=== PATIENT | female | born 1980 | race American Indian/Alaskan Native ===

== ENCOUNTER 2020-08-31 17:41 | Emergency (ER) | payer MEDICAID ==
[2020-08-31] MEDS ORDERED: LIDOCAINE (1%) 10 MG/1 ML VIAL 20 ML MDV INFILTRATI ONE ×2 (18:02→23:45)
--- NOTE | 2020-08-31 18:21 | Event Note ---
ED Screening Note Date of service: 08/31/20 Time: 18:19 ED Screening Note: 39-year-old female patient presents emergency department with complaints of a painful swollen area to her left groin progressively worsening for 1 week. The area has not drained. She is not currently on antibiotics. 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 Tachycardic and hypertensive in triage; patient is pacing, agitated, appears uncomfortable. General: Awake, appropriately interactive. Neck: Supple. Full range of motion intact. Cardiovascular: Normal peripheral perfusion. Pulmonary: No respiratory distress. Patient is speaking normally without use of accessory muscles. 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 Tenderness to palpation along the left groin area with fluctuant pocket noted to the left inguinal fold. Neurological: No facial asymmetry. Speech is clear. Follows commands. Patient is alert and oriented. Musculoskeletal: Moves all four extremities spontaneously with normal range of motion. Psych: Cooperative. Appropriate mood and affect. I have greeted and performed a focused rapid initial assessment of this patient. A comprehensive ED assessment and evaluation of the patient, analysis of all test results, and completion of the medical decision-making process will be conducted by additional ED providers. This initial assessment/diagnostic orders/clinical plan/treatment(s) is/are subject to change based on patients health status, clinical progression and re-assessment. Further treatment and workup at subsequent clinical provider's discretion. Patient/guardian urged not to elope from the ED as their condition may be serious if not clinically assesse d and managed.
[2020-08-31] MEDS ORDERED: ACETAMINOPHEN 500 MG TAB PO ONE ×2 (19:33→23:58)
[2020-08-31] MEDS ORDERED: SULFAMETHOXAZOLE/TRIMETHOPRIM 800/160MG DS TAB PO ONE ×2 (20:24→23:59)
[2020-08-31] MEDS ORDERED: KETOROLAC 30 MG/1 ML INJ IV ONE ×2 (20:24→23:58)
[2020-08-31] MEDS ORDERED: SODIUM CHLORIDE 0.9% 1000 ML 1,000 ML IV ONE ×2 (20:24→23:58)
[2020-08-31 20:49] LABS: Basophils # (Auto) 0.1 K/mm3 (0.0-0.1); Eosinophils # (Auto) 0.2 K/mm3 (0.0-0.4); Eosinophils % (Auto) 1.5 % (0.0-4.3); Hematocrit 36.1 % (30.3-42.9); Hemoglobin 11.7 gm/dl (10.1-14.3); Lymphocytes # (Auto) 3.2 K/mm3 (1.2-5.4); Mean Corpuscular HGB Conc 32 % (30-34); Mean Corpuscular Volume 84 fl (79-97); Monocytes # (Auto) 1.2 K/mm3 (0.0-0.8); Platelet Count 446 K/mm3 (140-440); Red Blood Count 4.31 M/mm3 (3.65-5.03); Red Cell Distribution Width 15.5 % (13.2-15.2)
[2020-08-31 21:05] LABS: Alanine Aminotransferase 15 units/L (7-56); Albumin 4.4 g/dL (3.9-5); BUN/Creatinine Ratio 17; Blood Urea Nitrogen 17 mg/dL (7-17); Calcium 9.1 mg/dL (8.4-10.2); Hemolysis Index 0
--- NOTE | 2020-09-01 01:58 | Emergency Department Report ---
ED General Adult HPI - General Chief complaint: Skin/Abscess/Foreign Body Stated complaint: ABSCESS Source: patient Mode of arrival: Ambulatory Limitations: No Limitations - History of Present Illness Initial comments: Patient is a 39-year-old -[place] female with no past medical history presents to the ED with complaint of acute onset persistent severe painful swollen mild erythematous maculopapular rash on left inguinal area for the last 1 week, worse in the last 2 days. Patient states that the pain is worse with any movements or palpation of the area despite taking [id number]-[id number] pain medications. Patient states that she suspects that the rash is likely due to an ingrown hair following shaving of the area. Patient denies nausea, vomiting, fever, chills, dizziness, syncope, chest pain, shortness of breath, abdominal pain, low back pain, traumatic injury, back pain, traumatic injury, numbness and tingling or weakness of left leg. MD Complaint: Left inguinal swollen painful rash -: Sudden, week(s) (1) Location: lower extremity (Left inguinal area) Radiation: non-radiation Severity scale (0 -10): 9 Quality: aching, sharp Consistency: constant Improves with: none Worsens with: movement Associated Symptoms: denies other symptoms, rash (Swollen, severely painful mild erythematous maculopapular rash on left groin area). denies: confusion, chest pain, cough, diaphoresis, fever/chills, headaches, loss of appetite, malaise, nausea/vomiting, shortness of breath, syncope, weakness Treatments Prior to Arrival: NSAID - Related Data Previous Rx's Medication Instructions Recorded Last Taken Type Acetaminophen/Codeine [Tylenol 1 tab PO Q6H PRN #12 tab 09/01/20 Unknown Rx /Codeine # 3 tab] Clindamycin [Clindamycin CAP] 300 mg PO Q8HR #60 capsule 09/01/20 Unknown Rx Ibuprofen [Motrin] 800 mg PO Q8HR PRN #30 tablet 09/01/20 Unknown Rx Ondansetron [Zofran Odt] 4 mg PO Q6HR PRN #15 tab.rapdis 09/01/20 Unknown Rx Sulfamethoxazole/Trimethoprim 1 each PO Q12H #20 tablet 09/01/20 Unknown Rx [Bactrim DS TAB] Allergies Allergy/AdvReac Type Severity Reaction Status Date / Time No Known Allergies Allergy Verified 08/31/20 23:55 ED Review of Systems ROS: Stated complaint: ABSCESS Other details as noted in HPI Constitutional: denies: chills, fever Eyes: denies: eye pain, eye discharge, vision change ENT: denies: ear pain, throat pain Respiratory: denies: cough, shortness of breath, wheezing Cardiovascular: denies: chest pain, palpitations Endocrine: no symptoms reported Gastrointestinal: denies: abdominal pain, nausea, diarrhea Genitourinary: denies: urgency, dysuria, discharge Musculoskeletal: arthralgia (Left inguinal pain due to erythematous maculopapular rash). denies: back pain, joint swelling Skin: rash (Painful, swollen, mild erythematous maculopapular rash on left inguinal area), change in color. denies: lesions Neurological: headache. denies: weakness, paresthesias Psychiatric: denies: anxiety, depression Hematological/Lymphatic: denies: easy bleeding, easy bruising ED Past Medical Hx - Past Medical History Previous Medical History?: No - Surgical History Past Surgical History?: Yes Additional Surgical History: x 2, surgery under arms for boils - Medications Home Medications: Home Medications Medication Instructions Recorded Confirmed Last Taken Type Acetaminophen/Codeine [Tylenol 1 tab PO Q6H PRN #12 tab 09/01/20 Unknown Rx /Codeine # 3 tab] Clindamycin [Clindamycin CAP] 300 mg PO Q8HR #60 capsule 09/01/20 Unknown Rx Ibuprofen [Motrin] 800 mg PO Q8HR PRN #30 tablet 09/01/20 Unknown Rx Ondansetron [Zofran Odt] 4 mg PO Q6HR PRN #15 tab.rapdis 09/01/20 Unknown Rx Sulfamethoxazole/Trimethoprim 1 each PO Q12H #20 tablet 09/01/20 Unknown Rx [Bactrim DS TAB] ED Physical Exam - General Limitations: No Limitations General appearance: alert, in no apparent distress - Head Head exam: Present: atraumatic, normocephalic, normal inspection - Eye Eye exam: Present: normal appearance, PERRL, EOMI Pupils: Present: normal accommodation - ENT ENT exam: Present: normal exam, normal orophraynx, mucous membranes moist, TM's normal bilaterally, normal external ear exam - Neck Neck exam: Present: normal inspection, full ROM - Respiratory Respiratory exam: Present: normal lung sounds bilaterally. Absent: respiratory distress, wheezes, rales, rhonchi, chest wall tenderness, accessory muscle use, decreased breath sounds, prolonged expiratory - Cardiovascular Cardiovascular Exam: Present: normal rhythm, tachycardia, normal heart sounds. Absent: systolic murmur, diastolic murmur, rubs, gallop - GI/Abdominal GI/Abdominal exam: Present: soft, normal bowel sounds. Absent: tenderness, guarding, rebound, hyperactive bowel sounds, organomegaly - Extremities Exam Extremities exam: Present: normal inspection, full ROM, tenderness (Palpable swollen severely tender left inguinal area due to erythematous maculopapular fluctuant rash), normal capillary refill. Absent: pedal edema, joint swelling, calf tenderness - Back Exam Back exam: Present: normal inspection, full ROM. Absent: tenderness, CVA tenderness (R), CVA tenderness (L), muscle spasm, paraspinal tenderness, vertebral tenderness - Neurological Exam Neurological exam: Present: alert, oriented X3, CN II-XII intact, normal gait, reflexes normal - Psychiatric Psychiatric exam: Present: normal affect, normal mood, anxious - Skin Skin exam: Present: warm, dry, intact, normal color, rash (Swollen, mild erythematous, severely tender maculopapular fluctuant rash on left inguinal area), erythema ED Course Vital Signs 08/31/20 09/01/20 17:57 00:00 Temperature 98.3 F Pulse Rate 104 H Respiratory 16 16 Rate Blood Pressure 190/131 [Right] O2 Sat by Pulse 97 Oximetry - I & D Left Groin Type of Procedure: Simple Site: 5 cm x 4 cm Blade Size: 11 I & D Procedure: betadine prep, sterile drapes applied, sterile dressing applied, gauze wick placed Progress: The area was cleaned with normal saline and sterilized with Betadine. 5 mL of lidocaine 1% solution was infiltrated in the area for local anesthesia. When local anesthesia was fully achieved, the area was incised with scalpel blade #11 and copious purulent discharge drained from the area. The wound was then cleaned thoroughly with normal saline and extensively debrided breaking the loculations. The wound was then packed with iodoform quarter-inch gauzes, for a total of 18 cm. Patient tolerated the procedure well. The wound was then dressed appropriately with 4 x 4 gauzes and Tegaderm. On reevaluation, patient's pain is well controlled medication. Patient discharged home on pain medication and antibiotics and advised to return to the ED in 2 days for wound recheck and packing removal, otherwise follow-up with her primary care physician in 7 to 10 days for reevaluation. ED Medical Decision Making - Lab Data Result diagrams: 08/31/20 20:32 08/31/20 20:32 - Medical Decision Making This is a 39-year-old -[place] female with no past medical history presents to the ED with complaint of acute onset persistent severe painful swollen mild erythematous maculopapular rash on left inguinal area for the last 1 week, worse in the last 2 days. Patient states that the pain is worse with any movements or palpation of the area despite taking [id number]-[id number] pain medications. Patient states that she suspects that the rash is likely due to an ingrown hair following shaving of the area. In the ED, patient is alert and oriented x3 and is not in any distress. Patient however appears to be in significant pain and she is crying during the physical exam. Patient is however tachycardic but afebrile in triage. Lab test results were reviewed and showed acute leukocytosis of 13,800, and the rest of the lab test results are nonactionable. Patient was treated for pain and also given clindamycin 900 mg IV x1 and Bactrim DS p.o. x1 with normal saline 1 L IV bolus x1. Left inguinal fluctuant abscess was incised and drained per protocol and the patient tolerated the procedure well after local anesthetic lidocaine 1% solution was used to infiltrate the area. The wound was then dressed appropriately and the patient was discharged home on pain medications and antibiotics. Patient was advised return to the ED in 2 days for wound recheck and packing removal, and was advised to follow-up with her primary care physician in 7 to 10 days for reevaluation or return to the ED immediately if symptoms get worse. - Differential Diagnosis Cellulitis; abscess; folliculitis; insect bite Critical care attestation.: If time is entered above; I have spent that time in minutes in the direct care of this critically ill patient, excluding procedure time. ED Disposition Clinical Impression: Cellulitis of left groin, Acute folliculitis, Cutaneous abscess of groin Disposition: DC-01 TO HOME OR SELFCARE Is pt being admited?: No Does the pt Need Aspirin: No Condition: Stable Instructions: Skin Abscess, [id number], Cellulitis, Adult, [id number], Folliculitis Additional Instructions: All lab test results were reviewed and are all nonactionable. Therefore take medications with food, drink plenty of fluids and follow-up with your primary care physician in 5 to 7 days for reevaluation. Return to the ED immediately if symptoms get worse. Otherwise return to the ED in 2 days for wound recheck and packing removal. Prescriptions: Sulfamethoxazole/Trimethoprim [Bactrim DS TAB] 1 each PO Q12H #20 tablet Clindamycin [Clindamycin CAP] 300 mg PO Q8HR #60 capsule Ibuprofen [Motrin] 800 mg PO Q8HR PRN #30 tablet PRN Reason: Pain , Severe (7-10) Acetaminophen/Codeine [Tylenol /Codeine # 3 tab] 1 tab PO Q6H PRN #12 tab PRN Reason: Pain , Severe (7-10) Ondansetron [Zofran Odt] 4 mg PO Q6HR PRN #15 tab.rapdis PRN Reason: Nausea Referrals: [facility] [Provider Group] - 7-10 days Forms: Work/School Release Form(ED) Time of Disposition: 02:08 Print Language: LUXEMBOURGISH
[2020-09-01 02:38] VITALS: BP 129/87
== END 2020-09-01 02:38 | disposition home or self-care (01) ==
LOC: ED 17:41
DX: L03.314 Cellulitis of groin (principal); L73.9 Follicular disorder, unspecified; L02.214 Cutaneous abscess of groin; Z98.890 Other specified postprocedural states; Z79.1 Long term (current) use of non-steroidal anti-inflammatories (NSAID); Z79.899 Other long term (current) drug therapy
CPT/HCPCS: 10060; 36415; 80053; 82140; 85025; 96365; 96375; 99283; J1885; J7030

== ENCOUNTER 2021-06-01 07:55 | Emergency (ER) | payer MEDICAID ==
[2021-06-01] MEDS ORDERED: HYDROmorphone 1 MG/1 ML INJ IM ONE (08:56)
[2021-06-01] MEDS ORDERED: LIDOCAINE (1%) 10 MG/1 ML VIAL 20 ML MDV INFILTRATI ONE (08:56)
--- NOTE | 2021-06-01 08:57 | Emergency Department Report ---
ED General Adult HPI - General Chief complaint: Skin/Abscess/Foreign Body Stated complaint: BOIL PUI?: No Time Seen by Provider: 06/01/21 08:40 Source: patient, RN notes reviewed, old records reviewed Mode of arrival: Ambulatory Limitations: No Limitations - History of Present Illness Initial comments: The patient was evaluated in the emergency department for symptoms described in the history of present illness. He/she was evaluated in the context of the global COVID-19 pandemic, which necessitated consideration that the patient might be at risk for infection with the virus that causes COVID-19. Institutional protocols and algorithms that pertain to the evaluation of patients at risk for COVID-19 are in a state of rapid change based on information released by regulatory bodies including the CDC and federal and state organizations. These policies and algorithms were followed during the patient's care in the emergency department. Please note that these policies, procedures and recommendations changed on a rapid basis. Past medical history: Hidradenitis suppurativa The patient is a pleasant 40-year-old female. She is not known to myself previously. She states that she is not . Her surgeon of record is located in [place]. She presents to the ER today with a complaint of nontraumatic right-sided armpit pain and swelling, consistent with prior episodes of hidradenitis suppurativa. Denies fever, chills, nausea, vomiting and diarrhea, additional injuries and complaints. She states that this is consistent with prior episodes of "boils." -: Gradual, days(s) Location: right, upper extremity Severity scale (0 -10): 10 Quality: aching Consistency: constant Improves with: rest Worsens with: movement (Palpation) Associated Symptoms: denies other symptoms - Related Data Previous Rx's Medication Instructions Recorded Last Taken Type Acetaminophen [Non-Aspirin Extra 500 mg PO Q6HR PRN #30 tablet 06/01/21 Unknown Rx Strength] DOXYCYCLINE Hyclate [Vibramycin] 100 mg PO Q12HR #14 capsule 06/01/21 Unknown Rx Ibuprofen [Motrin] 600 mg PO Q8H PRN #30 tablet 06/01/21 Unknown Rx Morphine Sulfate [Morphine Sulfate 7.5 mg PO Q6HR PRN #10 tablet 06/01/21 Unknown Rx IR] Allergies Allergy/AdvReac Type Severity Reaction Status Date / Time No Known Allergies Allergy Verified 08/31/20 23:55 ED Review of Systems ROS: Stated complaint: BOIL Other details as noted in HPI Constitutional: denies: fever Eyes: denies: eye discharge ENT: denies: epistaxis Respiratory: denies: cough Cardiovascular: denies: chest pain Gastrointestinal: denies: abdominal pain Musculoskeletal: denies: back pain Skin: lesions, change in color, other (Right axillary abscess) Neurological: denies: weakness ED Past Medical Hx - Past Medical History Hx Hypertension: Yes - Surgical History Past Surgical History?: Yes Additional Surgical History: x 2, surgery under arms for boils - Medications Home Medications: Home Medications Medication Instructions Recorded Confirmed Last Taken Type Acetaminophen [Non-Aspirin Extra 500 mg PO Q6HR PRN #30 tablet 06/01/21 Unknown Rx Strength] DOXYCYCLINE Hyclate [Vibramycin] 100 mg PO Q12HR #14 capsule 06/01/21 Unknown Rx Ibuprofen [Motrin] 600 mg PO Q8H PRN #30 tablet 06/01/21 Unknown Rx Morphine Sulfate [Morphine Sulfate 7.5 mg PO Q6HR PRN #10 tablet 06/01/21 Unknown Rx IR] ED Physical Exam - General Limitations: No Limitations General appearance: alert, in no apparent distress - Head Head exam: Present: atraumatic, normocephalic - Eye Eye exam: Present: normal appearance, EOMI. Absent: nystagmus - ENT ENT exam: Present: normal exam, normal orophraynx, mucous membranes moist, normal external ear exam - Neck Neck exam: Present: normal inspection, full ROM. Absent: tenderness, meningismus - Respiratory Respiratory exam: Present: normal lung sounds bilaterally, other (There is right lateral superior anterior chest wall induration. There is no redness, pus or streaking.). Absent: respiratory distress, wheezes, rales, rhonchi, stridor - Cardiovascular Cardiovascular Exam: Present: regular rate, normal rhythm, normal heart sounds. Absent: bradycardia, tachycardia, irregular rhythm, systolic murmur, diastolic murmur, rubs, gallop - GI/Abdominal GI/Abdominal exam: Present: soft. Absent: distended, tenderness, guarding, rebound, pulsatile mass - Extremities Exam Extremities exam: Present: full ROM, tenderness (Right axillary tenderness), other (2+ pulses noted in the bilateral upper extremities. There is no long bony tenderness. The muscular compartments are soft). Absent: normal inspection (Left upper extremity is within normal limits. Bilateral lower extremity is within normal limits. In the right axilla, there is a fluctuant abscess, without surrounding erythema, but surrounding induration. The abscess is oval-shaped, and approximately 2 cm x 3 cm x 1 cm.), calf tenderness - Back Exam Back exam: Present: normal inspection. Absent: tenderness, CVA tenderness (R), CVA tenderness (L), paraspinal tenderness, vertebral tenderness - Neurological Exam Neurological exam: Present: alert, oriented X3, other (No facial droop. Tongue midline. Extraocular movements intact bilaterally. Facial sensation intact to light touch in V1, V2, V3 distribution bilaterally. 5 and a 5 strength in 4 extremities. Sensation intact to light touch in 4 extremities.) - Psychiatric Psychiatric exam: Present: anxious - Skin Skin exam: Present: warm, other (Right axillary abscess with surrounding induration). Absent: rash ED Course Vital Signs 06/01/21 06/01/21 06/01/21 08:26 08:40 08:42 Temperature 98 F Pulse Rate 80 65 Respiratory 16 17 Rate Blood Pressure 186/109 131/78 [Left] O2 Sat by Pulse 96 99 93 Oximetry 06/01/21 09:26 Temperature Pulse Rate 68 Respiratory 18 Rate Blood Pressure 169/98 [Left] O2 Sat by Pulse 100 Oximetry - Reevaluation(s) Reevaluation #1: 06/01/21 09:13 Differential diagnosis, including but not limited to: Hidradenitis suppurativa, axillary abscess, surrounding cellulitis Assessment and plan: 40-year-old -[place] female, who states that she is not , presenting with uncomplicated axillary abscess and surrounding induration. She is neurovascularly intact. Discussed recommendations for incision and drainage with patient. She is agreeable to this plan of care, and has provided verbal consent for incision and drainage. She will be premedicated with 0.25 hydromorphone IM, we will proceed with local anesthesia, and local drainage. Anticipate incision and drainage discharged with pain medication, oral antibiotics, warm compresses, outpatient follow-up. 06/01/21 09:14 Reevaluation #2: 06/01/21 09:15 When evaluating the patient, her O2 saturation is 95 to 97% on my examination 06/01/21 10:32 I&D performed without incident or complication. Please see procedure note. Patient tolerated this procedure well. She endorsed immediate relief of symptoms. O2 sat continues to remain 100% on room air. She will follow-up as an outpatient. Return precautions are reviewed. - I & D Right Proximal Arm Type of Procedure: Simple Site: Right axillary abscess Blade Size: 11 I & D Procedure: betadine prep, sterile drapes applied Progress: Verbal consent obtained from patient. The right axilla is prepped with typical aseptic Betadine, and then anesthetized using a 26-gauge needle, with 1% lidocaine without epinephrine, 5 cc. Using an 11 blade, a simple stab incision is made in the point of maximal fluctuance, with immediate return of purulent material, approximately 25 cc, with minimal blood. The area was gently expressed, and then a dressing was applied. The patient tolerated the procedure well, without complications ED Medical Decision Making - Lab Data Vital Signs 06/01/21 06/01/21 06/01/21 08:26 08:40 08:42 Temperature 98 F Pulse Rate 80 65 Respiratory 16 17 Rate Blood Pressure 186/109 131/78 [Left] O2 Sat by Pulse 96 99 93 Oximetry Critical care attestation.: If time is entered above; I have spent that time in minutes in the direct care of this critically ill patient, excluding procedure time. ED Disposition Clinical Impression: Abscess of axilla, History of hidradenitis suppurativa, Induration of skin Disposition: 01 HOME / SELF CARE / HOMELESS Is pt being admited?: No Does the pt Need Aspirin: No Condition: Good Instructions: Skin Abscess, Incision and Drainage Additional Instructions: Please apply warm compresses as often as as needed to the right armpit/groin as needed for physical pain and for comfort relief. Take the ibuprofen and acetaminophen as needed for physical pain, use the morphine sulfate for breakthrough pain. Exercise caution when taking the morphine sulfate, as this medication may be habit-forming, sedating, and addictive. Please take the pain medication and antibiotics as directed. Make certain that the patient does not attempt to get , or conceive, as doxycycline antibiotic is not safe in . Please follow-up with a primary care doctor or general surgeon for repeat wound check and evaluation within the next 7 to 10 days. Wash the right armpit with gentle soap and water once every 12-24 hours, and otherwise keep dry, and loosely covered. Please return to the emergency room right away with new pain, worsened pain, migration of pain, projectile vomiting, change in mental status, confusion, inability tolerate liquid feeds, new, worsened or different symptoms not present on the initial emergency room evaluation Referrals: Marly CORREA MD [Other] - 3-5 Days SOM REBOLLAR MD [Staff Physician] - 7-10 days
[2021-06-01] MEDS ORDERED: DOXYCYCLINE 100 MG CAP PO ONE (10:38)
[2021-06-01 10:59] VITALS: BP 151/100
== END 2021-06-01 11:02 | disposition home or self-care (01) ==
LOC: ED 07:55
DX: L02.411 Cutaneous abscess of right axilla (principal); I10 Essential (primary) hypertension; Z98.890 Other specified postprocedural states; Z79.899 Other long term (current) drug therapy
CPT/HCPCS: 10060; 96372; 99282; J1170; J3490